=== PATIENT | female | born 1995 | race Caucasian/White ===

== ENCOUNTER 2020-04-14 11:14 | Outpatient (CLI) | payer OTHER, MEDICAID, SELFPAY ==
[2020-04-14 13:20] LABS: Glucose 1 Hour PP 50gm Dose 136 mg/dL
== END 2020-04-14 11:15 | disposition home or self-care (01) ==
LOC: ANHLAB 11:16
PROVIDERS: Visit Provider Obstetrics & Gynecology
DX: O09.892 Supervision of other high risk pregnancies, second trimester (principal)
CPT/HCPCS: 36415; 82947

== ENCOUNTER 2020-04-28 12:06 | Outpatient (RCR) | payer OTHER, MEDICAID, SELFPAY ==
[2020-04-28 12:47] VITALS: BP 120/64; PULSE 80
== END 2020-07-07 08:05 | disposition home or self-care (01) ==
LOC: ANHOBOP 12:06
PROVIDERS: Visit Provider Obstetrics & Gynecology
DX: O36.8130 Decreased fetal movements, third trimester, not applicable or unspecified (principal); Z3A.29 29 weeks gestation of pregnancy
CPT/HCPCS: 59025

== ENCOUNTER 2020-05-20 07:44 | Outpatient (CLI) | payer OTHER, MEDICAID, SELFPAY ==
[2020-05-20 08:06] LABS: Basophils Percent Auto 0.3 % (0.2-1.2); Eosinophils Absolute Auto 0.1 K/mm3 (0-0.3); Hematocrit 37.3 % (37.0-47.0); Hemoglobin 12.3 g/dL (12.0-15.0); Immature Granulocyte Absolute 0.04 K/mm3 (0.00-0.031); Immature Granulocyte Percent A 0.3 % (0-0.5); Lymphocytes Absolute Auto 2.32 K/mm3 (0.9-3.2); Lymphocytes Percent Auto 19.8 % (18.3-44.2); Mean Corpuscular Hemoglobin 27.8 pg (26-34); Mean Corpuscular Volume 84.4 fl (80-100); Mean Platelet Volume 10.5 fl (7.4-10.4); Monocytes Absolute Auto 0.9 K/mm3 (0.1-0.6); Monocytes Percent Auto 7.4 % (2.6-8.5); Neutrophils Absolute Auto 8.3 K/mm3 (1.3-6.7); Neutrophils Percent Auto 71.2 % (45.5-73.1); Platelet Count Result 238 k/mm3 (150-375); Red Blood Count 4.42 M/mm3 (4.2-5.4); Red Cell Distribution Width 14.6 % (11.5-14.5); White Blood Count 11.7 K/mm3 (4.5-10.0)
[2020-05-20 08:43] LABS: Glucose Fasting Gestational 103 mg/dL (>/=95)
[2020-05-20 10:40] LABS: Glucose 1 Hour Gest 207 mg/dL (>/=180)
[2020-05-20 11:20] LABS: Glucose 2 Hour Gest 145 mg/dL (>/= 155)
[2020-05-20 12:20] LABS: Glucose 3 Hour Gest 45 mg/dL (>/=140)
[2020-05-21 12:45] LABS: Rapid Plasma Reagin Non-Reactive (NonReactive)
== END 2020-05-20 07:45 | disposition home or self-care (01) ==
PROVIDERS: Visit Provider Obstetrics & Gynecology
DX: O09.892 Supervision of other high risk pregnancies, second trimester (principal)
CPT/HCPCS: 36415; 82951; 82952; 85025; 86592

== ENCOUNTER 2020-06-01 08:08 | Outpatient (CLI) | payer OTHER, MEDICAID, SELFPAY ==
[2020-06-01] MEDS: TETANUS,DIPHTHERIA,AC PERTUSSIS ADULT (0.5 ML) BOOSTRIX IM (08:51)
== END 2020-06-01 08:09 | disposition home or self-care (01) ==
LOC: ANHOBOP 08:22
PROVIDERS: Visit Provider Obstetrics & Gynecology
DX: Z34.90 Encounter for supervision of normal pregnancy, unspecified, unspecified trimester (principal); Z3A.00 Weeks of gestation of pregnancy not specified
CPT/HCPCS: 59025; 76816; 76819; 90715; 96372

== ENCOUNTER 2020-07-02 16:35 | Outpatient (NON) | payer OTHER, MEDICAID, SELFPAY ==
[2020-07-02 19:19] VITALS: BMI 53.7
[2020-07-02 19:50] LABS: Collection Time Urine 24 HOURS
[2020-07-02 19:57] LABS: Patient Weight 293 Lbs; Total Volume 24 Hour Urine 1400 ml
[2020-07-02 19:58] LABS: Creatinine Clearance Urine 140.5 ml/min (75-125); Creatinine Urine 112.3 mg/dL; Total Protein Urine 24 Hr 126 MG/DAY (28-141); Total Protein Urine Random 9 mg/dL
== END 2020-07-02 16:36 ==
PROVIDERS: Visit Provider Obstetrics & Gynecology
DX: O13.9 Gestational [pregnancy-induced] hypertension without significant proteinuria, unspecified trimester (principal); Z3A.00 Weeks of gestation of pregnancy not specified
CPT/HCPCS: 81050; 82575; 84156

== ENCOUNTER 2020-07-03 08:40 | Outpatient (RCR) | payer OTHER, MEDICAID, SELFPAY ==
[2020-06-01 09:30] VITALS: BP 110/79; PULSE 90
[2020-06-08 10:25] VITALS: BP 117/74; PULSE 98
[2020-06-15 09:30] VITALS: BP 124/82; PULSE 84
[2020-06-18 10:59] VITALS: BP 129/74; PULSE 105
[2020-06-18 19:51] VITALS: BP 133/83; PULSE 105
[2020-06-22 13:17] VITALS: BP 113/79; PULSE 114
[2020-06-25 09:25] VITALS: BP 117/71; PULSE 121
[2020-06-29 09:08] VITALS: BP 121/79; PULSE 113
[2020-07-01 11:35] LABS: Hematocrit 40.7 % (37.0-47.0); Hemoglobin 13.4 g/dL (12.0-15.0); Mean Corpuscular HGB Conc 32.9 g/dl (32-36); Mean Corpuscular Hemoglobin 27.6 pg (26-34); Mean Corpuscular Volume 83.9 fl (80-100); Mean Platelet Volume 11.5 fl (7.4-10.4); Platelet Count Result 217 k/mm3 (150-375); Red Blood Count 4.85 M/mm3 (4.2-5.4); Red Cell Distribution Width 14.9 % (11.5-14.5); White Blood Count 11.7 K/mm3 (4.5-10.0)
[2020-07-01 11:48] LABS: Alanine Aminotransferase 32 U/L (4-35); Albumin Level 3.5 g/dL (3.5-5.1); Alkaline Phosphatase 204 U/L (38-126); Anion Gap 6 mmol/L (8-16); Aspartate Amino Transferase 23 U/L (14-36); Bilirubin,Total 0.3 mg/dL (0.2-1.3); Blood Urea Nitrogen 9 mg/dL (7-17); Carbon Dioxide 20 mmol/L (22-30); Chloride 107 mmol/L (98-107); Estimated Glomerular Filt Rate > 60; Glucose 96 mg/dL (65-105); Potassium 4.2 mmol/L (3.4-5.0); Sodium 133 mmol/L (137-145); Uric Acid 5.6 mg/dL (2.5-7.5)
[2020-07-01 12:18] VITALS: BP 126/81; PULSE 92
--- NOTE | ~2020-07-03 | US_ITS ---
EXAMINATION: US OB limited w BPP DATE: 06/08/2020 09:44 INDICATION: Gestational diabetes, third trimester TECHNIQUE: Real-time pelvic ultrasound was performed. The interpreting radiologist was not present fo r the study. COMPARISON: None. FINDINGS: There is a single living fetus in vertex presentation. The placenta is anterior. heart rate is 152 beats per minute (bpm). Biophysical profile performed by the technologist: breathing (30 sec sustained breathing in 30 minutes): 2 out of 2 movement (3 gross body movements in 30 minutes): 2 out of 2 tone (one episode of kjypver-oitcjagnp-cqangkq limb movement): 2 out of 2 Amniotic fluid pocket (2 cm): 2 out of 2 Total score: 8 out of 8 IMPRESSION: 1. Single living fetus in vertex presentation. 2. Biophysical profile 8 out of 8. Reviewed, dictated and finalized at location A.
--- NOTE | ~2020-07-03 | US_ITS ---
EXAMINATION: US umbilical doppler, US OB BPP wo non-stress DATE: 07/01/2020 12:40 INDICATION: Hypertension during third trimester of TECHNIQUE: Real-time pelvic ultrasound was performed. The interpreting radiologist was not present fo r the study. COMPARISON: None. FINDINGS: There is a single living fetus in vertex presentation. The placenta is anterior. heart rate is 139 beats per minute (bpm). Biophysical profile performed by the technologist: breathing (30 sec sustained breathing in 30 minutes): 2 out of 2 movement (3 gross body movements in 30 minutes): 2 out of 2 tone (one episode of dhrqxwi-gqmrqdpil-pgkrgem limb movement): 2 out of 2 Amniotic fluid pocket (2 cm): 2 out of 2 Total score: 8 out of 8 The umbilical artery demonstrates a peak systolic and diastolic velocity ratio of 2.3-2.7 at the fetu s, 2.0-2.2 in the mid cord and 1.8 near the placenta (5th%-95%: 1.90-3.08 at 38 weeks). IMPRESSION: 1. Single living fetus in vertex presentation with heart rate of 139 bpm. 2. Biophysical profile 8 out of 8. 3. Normal umbilical arterial systolic to diastolic ratios. Reviewed, dictated and finalized at location A. IMPRESSION: 1. Single living fetus in vertex presentation with heart rate of 139 bpm. 2. Biophysical profile 8 out of 8. 3. Normal umbilical arterial systolic to diastolic ratios.
--- NOTE | ~2020-07-03 | US_ITS ---
EXAMINATION: US OB BPP wo non-stress DATE: 06/22/2020 10:18 INDICATION: Gestational diabetes, third trimester TECHNIQUE: Real-time pelvic ultrasound was performed. The interpreting radiologist was not present fo r the study. COMPARISON: 06/12/2020 FINDINGS: There is a single living fetus in vertex presentation. The placenta is anterior. heart rate is 129 beats per minute (bpm). Biophysical profile performed by the technologist: breathing (30 sec sustained breathing in 30 minutes): 2 out of 2 movement (3 gross body movements in 30 minutes): 2 out of 2 tone (one episode of iqjtzwd-ocxqubtwf-orhoxiv limb movement): 2 out of 2 Amniotic fluid pocket (2 cm): 2 out of 2 Total score: 8 out of 8 IMPRESSION: 1. Single living fetus in vertex presentation. 2. Biophysical profile 8 out of 8. Reviewed, dictated and finalized at location A.
--- NOTE | ~2020-07-03 | US_ITS ---
US OB limited w BPP DATE: 06/15/2020 09:35 INDICATION: Gestational diabetes mellitus TECHNIQUE: Real-time imaging and Doppler analysis COMPARISON: 06/08/2020 obstetrical ultrasound Limited examination with biophysical profile FINDINGS: Live single intrauterine gestation, fetus in vertex presentation. heart rate of 131 b pm. Anterior placenta. Subjectively normal amount of amniotic fluid. Amniotic fluid index measures 18.3 cm. This is within n ormal range between 5th percentile 7.7 cm and 95th percentile of 24.9 cm. BIOPHYSICAL PROFILE reported by surgical instrument technician: breathin out of 2 movement: 2 out of 2 tone: 2 out of 2 Amniotic fluid pocket: 2 out of 2 Total score: 8 out of 8 IMPRESSION: Normal biophysical profile score of 8 out of 8 Reviewed, dictated and finalized at Location A. Reviewed, dictated and finalized at location A.
--- NOTE | ~2020-07-03 | US_ITS ---
EXAMINATION: US OB limited EXAM DATE: 07/03/2020 09:46 INDICATION: Gestational diabetes. Check NILE. 3rd trimester. TECHNIQUE: Pelvic obstetrical transabdominal sonogram was performed by a technologist. There are mu ltiple grayscale and Doppler images available for interpretation. Comparison is made to prior examina tion from 06/11/2020. FINDINGS: There is a single fetus identified in vertex presentation with a heart rate of 143 beats pe r minute. The placenta is located in the anterior position. There is no sonographic evidence of retr oplacental hemorrhage identified. The amniotic fluid index is 10.5 centimeters, which is normal. IMPRESSION: 1. Single fetus in vertex presentation with heart rate 143 beats per minute. 2. Normal NILE 10.5 cm. Reviewed, dictated and finalized at location A.
--- NOTE | ~2020-07-03 | US_ITS ---
EXAMINATION: US OB follow up w BPP EXAM DATE: 06/01/2020 09:28 INDICATION: Gestational diabetes. 3rd trimester. TECHNIQUE: Pelvic obstetrical transabdominal sonogram was performed by a technologist. There are mu ltiple grayscale and Doppler images available for interpretation. There are no earlier studies of th is gestation for comparison. FINDINGS: There is a single fetus identified in vertex presentation with a heart rate of 144 beats pe r minute. The placenta is located in the anterior position. There is no sonographic evidence of retr oplacental hemorrhage identified. The amniotic fluid index is 13.0 centimeters, which is normal. BIOPHYSICAL PROFILE (performed by the technologist) breathing (30 sec sustained breathing in 30 minutes): 2 out of 2 movement (3 gross body movements in 30 minutes): 2 out of 2 tone (one episode of xnwskjs-bwedmmrjv-ijijvlt limb movement): 2 out of 2 Amniotic fluid pocket (2 cm): 2 out of 2 Total score: 8 out of 8 IMPRESSION: 1. Single fetus with heart rate of 144 bpm. 2. Normal biophysical profile score of 8 out of 8. 3. Normal NILE 13 cm. Reviewed, dictated and finalized at location A.
--- NOTE | 2020-07-03 10:30 | PC.NURSE ---
BRg955/85, 136/79, 140/67.
[2020-07-03 10:45] VITALS: BP 135/89; PULSE 108
== END 2020-07-07 08:04 | disposition home or self-care (01) ==
LOC: ANHOBOP 08:40
PROVIDERS: Visit Provider Obstetrics & Gynecology
DX: O24.419 Gestational diabetes mellitus in pregnancy, unspecified control (principal); Z3A.34 34 weeks gestation of pregnancy; Z3A.35 35 weeks gestation of pregnancy; Z3A.36 36 weeks gestation of pregnancy; Z3A.37 37 weeks gestation of pregnancy; O26.893 Other specified pregnancy related conditions, third trimester; R03.0 Elevated blood-pressure reading, without diagnosis of hypertension; Z3A.38 38 weeks gestation of pregnancy
CPT/HCPCS: 36415; 59025; 76815; 76816; 76819; 76820; 80053; 84550; 85027

== ENCOUNTER 2020-07-04 05:44 | Outpatient (CLI) | payer OTHER, MEDICAID, SELFPAY ==
[2020-07-04 07:02] VITALS: BP 126/83; PULSE 92
== END 2020-07-04 07:15 | disposition home or self-care (01) ==
PROVIDERS: Visit Provider Obstetrics & Gynecology
DX: O13.9 Gestational [pregnancy-induced] hypertension without significant proteinuria, unspecified trimester (principal)
CPT/HCPCS: 59025

== ENCOUNTER 2020-07-06 07:10 | Inpatient (IN) | payer OTHER, MEDICAID, SELFPAY ==
[2020-07-06] VITALS (143 sets, daily range): BP systolic 76–163; BP diastolic 38–131; PULSE 50–212; TEMP 36.1–36.6; O2SAT 81–100; BMI 53.6
--- NOTE | 2020-07-06 07:33 | WPDANESEPP ---
Anes - Eval Pre Procedure Procedure: labor epidural Date/Time: 07/06/20 07:33 Preop Diagnosis: labor pain Pre Op Diagnosis: Induction of Labor Patient Data Age: 24 Gender: F Height: Weight: Allergies Allergy/AdvReac Type Severity Reaction Status Date / Time No Known Allergies Allergy Mild Verified 07/01/20 10:15 Home Medications Medication Instructions Recorded Confirmed Type blood sugar diagnostic #100 each 05/29/20 05/29/20 Rx blood-glucose meter #1 each 05/29/20 05/29/20 Rx lancets #100 each 05/29/20 05/29/20 Rx PNV no.[id number] 2 tablet PO DAILY 06/18/20 06/18/20 History [ Gummies] Vitamin D3 2 tablet PO DAILY 06/18/20 06/18/20 History calcium carbonate [Tums] 600 mg PO ONCE 06/18/20 06/18/20 History Patient hx anesthesia problems: none Family hx anesthesia problems: none PMFSH Social History Social History Gender identity (if verbalized by the patient): Female Spiritual care concerns: No Exam Day of Procedure 07/06/20 07:33
[2020-07-06 08:17] LABS: Basophils Percent Auto 0.4 % (0.2-1.2); Eosinophils Absolute Auto 0.1 K/mm3 (0-0.3); Eosinophils Percent Auto 1.1 % (0-4.4); Hematocrit 36.4 % (37.0-47.0); Hemoglobin 12.2 g/dL (12.0-15.0); Immature Granulocyte Absolute 0.05 K/mm3 (0.00-0.031); Immature Granulocyte Percent A 0.5 % (0-0.5); Lymphocytes Absolute Auto 2.06 K/mm3 (0.9-3.2); Lymphocytes Percent Auto 19.6 % (18.3-44.2); Mean Corpuscular HGB Conc 33.5 g/dl (32-36); Mean Corpuscular Volume 83.5 fl (80-100); Mean Platelet Volume 11.5 fl (7.4-10.4); Monocytes Absolute Auto 0.7 K/mm3 (0.1-0.6); Monocytes Percent Auto 6.3 % (2.6-8.5); Neutrophils Absolute Auto 7.6 K/mm3 (1.3-6.7); Neutrophils Percent Auto 72.1 % (45.5-73.1); Platelet Count Result 234 k/mm3 (150-375); Red Blood Count 4.36 M/mm3 (4.2-5.4); Red Cell Distribution Width 14.7 % (11.5-14.5); White Blood Count 10.5 K/mm3 (4.5-10.0)
[2020-07-06 08:19] LABS: Glucose Point of Care 146 (65-105)
[2020-07-06] MEDS: SODIUM CHLORIDE 0.9% IV 1,000 ML 125 ML IV CONT (08:38)
[2020-07-06] MEDS: OXYTOCIN 30 UNITS/NS 500 ML 30 UNITS/500 ML BAG 6 UNITS IV CONT (08:40)
[2020-07-06] MEDS: AMPICILLIN 2 GM/NS 100 ML 2 GM/100 ML BAG IVPB (08:40)
--- NOTE | 2020-07-06 08:43 | LDADM ---
This patient, Sonja Wyman, was admitted to Labor/Delivery/Recovery 103 on 07/06/20 at 07:10. Plans for labor, pain management and were discussed with patient. Patient/family oriented to hospital policies and general routines including ID bracelet, bed and alarms, visiting hours, pain management, procedures, bathroom and other care routines, personal items, smoking policy, room service/diet and guest tray routines, security routines, and visiting hours. Patient/Family are encouraged to report perceived risks to care and to ask questions if they do not understand what they are told or what they should do. See OBIX for further documentation.
[2020-07-06 09:09] LABS: HIV 1/2 Ab P24 Ag Result Negative (Negative)
[2020-07-06 09:21] LABS: Glucose Point of Care 92 (65-105)
[2020-07-06 11:53] LABS: Glucose Point of Care 89 (65-105)
[2020-07-06] MEDS: AMPICILLIN 1 GM/NS 50 ML 1 GM/50 ML BAG IVPB ×3 (12:35→20:28)
[2020-07-06 14:55] LABS: Glucose Point of Care 79 (65-105)
[2020-07-06 17:16] LABS: Glucose Point of Care 103 (65-105)
--- NOTE | 2020-07-06 17:18 | PM.IMHP ---
H&P: HPI History of Present Illness Date/Time: 07/06/20 17:18 Chief complaint: Induction of Labor Narrative: Sonja Wyman is a 24 year old female G1 at 39 2/7 weeks with an EDC of Jul 11. course significant for gestational diabetes diet controlled. Recently diagnosed with gestational hypertension on Monday. She denies any headache scotomata or right upper quadrant pain. course also significant for history of marijuana use which she states she used for anxiety. She declines recent use. She has a history of generalized anxiety. She sees a counselor. She was offered Buspar but declined. Also history significant for obesity. She has had normal surveillance testing. Her last ultrasound had EFW 11% which prior ultrasound was 23%. Her doppler studies have been normal. She also had ASCUS +HR hpv pap- bx CIN1. labs reviewed. Review of Systems Review of Systems: All systems reviewed & are unremarkable except as noted in HPI and below Constitutional: Constitutional: Reports no additional constitutional complaints and Denies headache(s) Eyes: Eyes: Denies spots in vision ENT: Reports system reviewed and no additional complaints, except as documented and Denies headache(s) Cardiovascular: Cardiovascular: Denies chest pain and Denies dyspnea Respiratory: Respiratory: Denies dyspnea Gastrointestinal: Gastrointestinal: Reports no additional gastrointestinal complaints Genitourinary: Genitourinary: Reports amenorrhea Musculoskeletal: Musculoskeletal: Reports no additional musculoskeletal complaints Integumentary/Breasts: Skin/Breast: Denies breast mass and Denies rash Neurologic: Denies headache(s) Psychiatric: Psychiatric: Reports no additional psychiatric complaints PMFSH Past Medical History Medical History Chlamydia Depression Encounter for childcare instruction Supervision of other high risk pregnancies, second trimester Surgical History Surgical History [place] teeth removed Family History Family History Father Diabetes mellitus Social History Social History Smoking status: Never smoker Gender identity (if verbalized by the patient): Female Spiritual care concerns: No Meds Home Medications and Allergies Home Medications Medication Instructions Recorded Confirmed Type blood sugar diagnostic #100 each 05/29/20 05/29/20 Rx blood-glucose meter #1 each 05/29/20 05/29/20 Rx lancets #100 each 05/29/20 05/29/20 Rx PNV no.[id number] 2 tablet PO DAILY 06/18/20 07/06/20 History [ Gummies] Vitamin D3 2 tablet PO DAILY 06/18/20 07/06/20 History calcium carbonate [Tums] 600 mg PO ONCE 06/18/20 07/06/20 History Allergies Allergy/AdvReac Type Severity Reaction Status Date / Time No Known Allergies Allergy Mild Verified 07/01/20 10:15 Vital Signs Vital Signs - 24 hr 07/06/20 08:12 07/06/20 08:46 07/06/20 09:01 Temperature Pulse Rate 107 H 97 98 Blood Pressure 121/82 133/91 H 128/76 07/06/20 09:16 07/06/20 09:31 07/06/20 09:47 Temperature Pulse Rate 91 89 82 Blood Pressure 123/94 H 119/78 126/75 07/06/20 10:01 07/06/20 10:16 07/06/20 10:31 Temperature Pulse Rate 77 69 71 Blood Pressure 123/63 116/66 118/65 07/06/20 10:46 07/06/20 11:02 07/06/20 11:16 Temperature Pulse Rate 70 74 81 Blood Pressure 118/72 99/66 L 119/74 07/06/20 11:47 07/06/20 12:01 07/06/20 12:16 Temperature Pulse Rate 70 66 72 Blood Pressure 130/64 126/85 118/83 07/06/20 12:31 07/06/20 12:46 07/06/20 13:01 Temperature Pulse Rate 84 74 77 Blood Pressure 123/73 119/76 115/69 07/06/20 13:16 07/06/20 13:31 07/06/20 13:46 Temperature Pulse Rate 69 71 72 Blood Pressure 119/88 118/73 105/73
--- NOTE | 2020-07-06 17:36 | PM.OBPNVD ---
OB - PN: Subj Subjective Date/time seen: 07/06/20 1430 Cat 1 tracing, fht 130, irreg ctx, 3.5/50/-2, attempted AROM, patient did not tolerate exam. Continue Pitocin. OB - PN: Obj Data Labs CBC & Chem 7: 07/06/20 08:09 Labs: Laboratory Results - last 24 hr 07/06/20 07/06/20 07/06/20 08:09 08:09 08:09 WBC 10.5 H RBC 4.36 Hgb 12.2 Hct 36.4 L MCV 83.5 MCH 28.0 MCHC 33.5 RDW 14.7 H Plt Count 234 MPV 11.5 H Immature Gran % (Auto) 0.5 Neut % (Auto) 72.1 Lymph % (Auto) 19.6 [place] % (Auto) 6.3 Eos % (Auto) 1.1 Baso % (Auto) 0.4 Lymph # (Auto) 2.06 [place] # (Auto) 0.7 H Eos # (Auto) 0.1 Baso # (Auto) 0.0 Abs Immat Gran (auto) 0.05 H Absolute Neuts (auto) 7.6 H Absolute Nucleated RBC 0.0 Nucleated RBC % 0.0 POC Capillary Glucose HIV 1&2 Ab/P24 Ag 4thGn Negative Blood Type O Positive Antibody Screen Negative 07/06/20 07/06/20 07/06/20 08:17 09:18 11:40 WBC RBC Hgb Hct MCV MCH MCHC RDW Plt Count MPV Immature Gran % (Auto) Neut % (Auto) Lymph % (Auto) [place] % (Auto) Eos % (Auto) Baso % (Auto) Lymph # (Auto) [place] # (Auto) Eos # (Auto) Baso # (Auto) Abs Immat Gran (auto) Absolute Neuts (auto) Absolute Nucleated RBC Nucleated RBC % POC Capillary Glucose 146 H 92 89 HIV 1&2 Ab/P24 Ag 4thGn Blood Type Antibody Screen 07/06/20 07/06/20 14:51 16:35 WBC RBC Hgb Hct MCV MCH MCHC RDW Plt Count MPV Immature Gran % (Auto) Neut % (Auto) Lymph % (Auto) [place] % (Auto) Eos % (Auto) Baso % (Auto) Lymph # (Auto) [place] # (Auto) Eos # (Auto) Baso # (Auto) Abs Immat Gran (auto) Absolute Neuts (auto) Absolute Nucleated RBC Nucleated RBC % POC Capillary Glucose 79 103 HIV 1&2 Ab/P24 Ag 4thGn Blood Type Antibody Screen OB - PN A/P Time Spent With Patient Time: Total time spent is greater than 50% in coordination of care (as documented) at patient's floor/unit and/or counseling patient:
[2020-07-06] MEDS: LACTATED RINGERS 1,000 ML 125 ML IV CONT ×2 (19:06→22:17)
[2020-07-06] MEDS: ONDANSETRON INJ 4 MG/2 ML VIAL IV PUSH (19:22)
[2020-07-06] MEDS: PHENYLEPHRINE 1,000 MCG/10 ML SYRINGE 100 MCG IV PUSH (20:35)
[2020-07-06 21:24] LABS: Glucose Point of Care 84 (65-105)
[2020-07-06 22:02] LABS: Glucose Point of Care 88 (65-105)
[2020-07-07] VITALS (23 sets, daily range): BP systolic 105–146; BP diastolic 54–124; PULSE 61–118; RESP 12–18; TEMP 36.4–36.8; O2SAT 85–100
[2020-07-07] MEDS: OXYTOCIN 30 UNITS/NS 500 ML 30 UNITS/500 ML BAG 125 UNITS IV CONT (01:51)
--- NOTE | 2020-07-07 02:05 | PM.OBPRVD ---
OB - Delivery Note Procedure Delivery date: 07/07/20 Procedure: Spontaneous vaginal delivery events: Gestational Diabetes and Induced HTN Induction method: per pitocin protocol Delivery monitor: external FHT, external uterine, internal FHT and internal uterine Route of delivery: Laceration description: Vaginal - 1st Degree (introitus) Delivery repair: vicryl (3.0) Specimen: Yes Estimated blood loss (mL): 150 Anesthesia type: Epidural Disposition: floor Complications: Shoulder dystocia lasting 1:55 sec relieved with delivery of posterior shoulder while modified huy and suprapubic pressure Tight nuchal cord surgically reduced. [place] Baby Date of : 07/07/20 Time of : 01:14 Weeks of gestation at delivery: 39 gender: Male Weight (pounds): 7 Weight (ounces): 5 presentation: vertex position: Left Occiput Anterior Placenta delivery description: Spontaneous cord vessel description: Nuchal Cord and Tight score one minute: 5 score five minutes: 9 Narrative: Patient was admitted on 07/06 for [facility] for gestational diabetes and gestational hypertension. She was started on Ampicillin on admission for GBS carrier status. Her cervix was 3 cm and she was started on Pitocin. Attempted AROM at 230 and patient did not tolerate exam. She had SROM clear at approximately 1600. She progressed to 8.5 cm. She did have episode of bradycardia with hypotension and had uterine hypertonus. Pitocin stopped. Blood pressures improved. She then restarted at 2137. She was called complete and pushed a few times but then cervix was rechecked and felt to be 9. She then started having nonrepetitive mild late decels and at that time I came in to discuss cesearean section for intolerance. The tracing had improved. Cat 1. Cervix had small rim. She pushed and was complete +1. position palpated at direct OA. She pushed well. She then pushed on all 4 for approximately 20min and then on the side. The station at that time was getting to +2. She continued to push well. She delivered a male infant. The head rotated to ANAND with last push and presentation of head. Tight nuchal cord surgically reduced. She then pushed and there was no descent. She was put in modified Huy and then suprapubic. The shoulder remain stuck. Then the right posterior shoulder was palpated with vaginal exam and swept midline and delivered to introitus and then the anterior shoulder delivered. Infant was handed to nursery staff in attendance. The cord blood and cord gases obtained. Placenta delivered spontaneous and intact. She sustained a first degree vaginal laceration repaired with 2 figure of eight 3.0 vicryl sutures. Hemostasis noted. EBL 150cc. Patient tolerated procedure well.
[2020-07-07] MEDS: IBUPROFEN 600 MG TABLET PO ×3 (03:19→19:56)
[2020-07-07 03:51] LABS: Amphetamine Screen Urine Negative (Negative); Barbiturate Screen Urine Negative (Negative); Benzodiazepines Screen Urine Negative (Negative); Cannabinoid Screen Urine Negative (Negative); Cocaine Screen Urine Negative (Negative); Methadone Screen Urine Negative (Negative); Opiate Screen Urine Negative (Negative); Phencyclidine Screen Urine Negative (Negative)
[2020-07-07] MEDS: BENZOCAINE 20% AER SPR (*SP) 56 GM CAN 1 SPRAY TOPICAL (04:19)
[2020-07-07] MEDS: WITCH HAZEL 40 PADS 1 PAD TOPICAL (04:19)
--- NOTE | 2020-07-07 04:37 | OBPPTRN ---
Patient transferred to post room #279 via wheelchair. Support person present. Oriented to unit, room, information board, rooming in, admission packet and security measures. Patient verbalizes understanding.
[2020-07-07] MEDS: ACETAMINOPHEN 325 MG TABLET 650 MG PO ×3 (04:56→23:51)
[2020-07-07 09:05] LABS: Rapid Plasma Reagin Non-Reactive (NonReactive)
[2020-07-07] MEDS: MULTIVIT/MIN/PREN/FOL AC/IRON TABLET 1 TAB PO (11:21)
--- NOTE | 2020-07-07 14:50 | PC.NURSE ---
Mother called out for assist. Mother reports infant is eagerly latching without discomfort, mother wishes observation and advise. Reviewed infant feeding cues, frequencies, duration of feedings, feeding elimination flow sheet, and signs of adequate intake. Demonstrated stimulation techniques to wake for feeding. Assisted with infant to breast. Reviewed positioning/alignment in cross cradle, holding breast in U hold and guided asymmetrical latch on. Discussed rational for each. Infant was able to latch correctly within a few attempts. nursed eagerly, with steady draws and frequent swallowing noted. Reviewed signs of a correct latch, effective nursing and suck swallow ratio. was able to maintain latch without discomfort to mother. Nipple care reviewed. Suggested mother stimulate while feeding to keep infant awake and nursing effectively for increased intake and to assist with maintaining deep latch. Demonstrated how to adjust latch more deeply while feeding. Instructed mother to call out for RN assistance if she is unable to latch for feeding or she has discomfort with nursing. Instructed feeding should be initiated three hours from start of last feeding or if feeding cues are noted before. Mother voiced understanding of information shared.
[2020-07-08] MEDS: IBUPROFEN 600 MG TABLET PO ×2 (04:55→16:34)
[2020-07-08 05:18] LABS: Hemoglobin 11.1 g/dL (12.0-15.0)
--- NOTE | 2020-07-08 07:19 | WPDANLDPN2 ---
Anes-Prog Note L&D Date/Time: 07/08/20 07:19 Comfortable throughout: labor and delivery Neuraxial method: epidural Epidural/Spinal procedure site: clean & non-tender Neuro status: Neuro function grossly intact. Cardiovascular status: normal Respiratory status: normal Airway patency: baseline Mental status: baseline Post-Op hydration status: normal Vital Signs: Last Vital Signs Temp 36.8 C 07/07/20 19:45 Pulse 72 07/07/20 19:45 Resp 12 07/07/20 19:45 BP 120/85 07/07/20 19:45 Pulse Ox 100 07/07/20 08:35 Post-procedural complaints: none Patient feedback: Patient satisfied with anesthetic care.
[2020-07-08 07:50] VITALS: BP 132/83; PULSE 67; RESP 18; TEMP 36.4; O2SAT 99
--- NOTE | 2020-07-08 08:12 | P.PNOB_ITS ---
OB - PN: Subj Subjective Date/time seen: 07/08/20 08:12 No headache scotomata or RUQ pain. Patient comments: pain well controlled, tolerating diet and other (Decreasing lochia.) [place] baby status: doing well and nursing well [place] feeding status: exclusively breast feeding OB - PN: Obj Data Labs CBC & Chem 7: 07/08/20 04:46 Labs: Laboratory Results - last 24 hr 07/06/20 07/08/20 08:09 04:46 Hgb 11.1 L Hct 34.0 L RPR Non-reactive OB - PN A/P Plan day: 1 Plan: routine care Comments: Patient doing well. Blood pressures stable. Continue routine care. Time Spent With Patient Time: Total time spent is greater than 50% in coordination of care (as documented) at patient's floor/unit and/or counseling patient: Exam Psych: Affect: normal affect Other: Abd: fundus firm below umbilicus, nontender Ext: nontender
[2020-07-08] MEDS: ACETAMINOPHEN 325 MG TABLET 650 MG PO ×2 (09:51→20:50)
[2020-07-08] MEDS: DOCUSATE SODIUM 100 MG CAPSULE PO ×2 (09:51→16:34)
[2020-07-08] MEDS: MULTIVIT/MIN/PREN/FOL AC/IRON TABLET 1 TAB PO (09:51)
--- NOTE | 2020-07-08 17:20 | PC.NURSE ---
Mother called out for assist with latch due to tenderness. Reviewed feeding cues, frequencies, duration of feedings, feeding elimination flow sheet, and signs of adequate intake. Demonstrated stimulation techniques to wake infant for feeding. Mother is attempting latch with cradle, allowing infant to self latch. Assisted with infant to breast. Reviewed positioning/alignment in cross cradle, holding breast in U hold and guided asymmetrical latch on. Discussed rational for each. Within a few attempts was able to latch correctly. nursed eagerly, with steady draws and frequent swallowing noted. Mother quickly reports she can feel infant is latched differently and has no discomfort. Reviewed signs of a correct latch, effective nursing and suck swallow ratio. Infant was[able/unable] to maintain latch without discomfort to mother. Nipple care reviewed. Suggested mother stimulate while feeding to keep infant awake and nursing effectively and to assist with maintaining deep latch. Instructed mother to call out for RN assistance if she is unable to latch for feeding or she has discomfort with nursing. Parents are concerned infant is not getting enough with . Reviewed signs of adequate intake. Discussed infant output and weight status, advised to keep close observation for output last output 0430, weight is at 9%. Advised to wake every three hours to feed and keep awake and nursing effectively. Reviewed PCOS and how this may impact milk supply, advising at this time no supplementing is required. Parents may supplement as they choose. Instructed feeding should be initiated three hours from start of last feeding or if feeding cues are noted before. Mother voiced understanding of information shared.
--- NOTE | 2020-07-08 18:40 | PC.NURSE ---
Patient viewed the discharge video Mother & Baby Care, The First Two Weeks . Patient was given the opportunity and encouraged to ask questions. Patient verbalized understanding of information shared and has been given the mother/baby guide for home reference.
[2020-07-08 20:54] VITALS: BP 140/82; PULSE 77; RESP 12; TEMP 36.8
[2020-07-09] MEDS: IBUPROFEN 600 MG TABLET PO ×2 (00:43→09:46)
[2020-07-09 08:00] VITALS: BP 135/80; PULSE 72; RESP 16; TEMP 36.4; O2SAT 100
--- NOTE | 2020-07-09 08:35 | P.PNOB_ITS ---
OB - PN: Subj Subjective Date/time seen: 07/09/20 08:35 Patient comments: pain well controlled, tolerating diet and other (Decreasing lochia.) baby status: doing well and nursing well [place] feeding status: exclusively breast feeding OB - PN: Obj Data Labs CBC & Chem 7: 07/08/20 04:46 OB - PN A/P Plan day: 2 Plan: discharge home and other Comments: Patient doing well. Follow up 4-6 weeks. Discharge instructions provided. Time Spent With Patient Time: Total time spent is greater than 50% in coordination of care (as documented) at patient's floor/unit and/or counseling patient: Time with patient: less than 15 minutes Exam Psych: Affect: normal affect Other: Abd: fundus firm below umbilicus, nontender Perineum: healing Ext: nontender
--- NOTE | 2020-07-09 09:30 | PC.NURSE ---
Mother is able to independently latch with appropriate positioning/alignment. She denies any nipple discomfort, is feeding as required and waking infant to feed if needed. Infant has had at least 8 effective feedings in the past 24 hours, and is currently meeting outcomes output, jaundice and feeding frequencies. Weight is at 10%. Mother is concerned with her milk supply, reviewed it is only day 2 and milk should transition in by day 3-5 after delivery. To continue to follow putting to breast each feeding and pumping every other. Parents are concerned infant will breastfeed both breasts for 20 each and continue to be fussy and have feeding cues. FP is initiated of 20 mls after each feeding. Mother will pump 10 minutes after every other feeding to assist with stimulation of milk supply. Discussed when to increase supplementation and signs of when infant may be ready to decrease supplementation. Mother states she feels confident to continue current feeding plan at home. Reviewed transition to breast milk, signs of adequate intake, and engorgement/relief. Instructed to call ICP if intake/output less than required. Reviewed regular medications mother is taking. Information provided per Jackie. Reviewed community resources on the [facility] website and in the Mom/Baby guide. Information on outpatient services provided. Mother has no further questions at this time.
[2020-07-09] MEDS: DOCUSATE SODIUM 100 MG CAPSULE PO (09:46)
[2020-07-09] MEDS: MULTIVIT/MIN/PREN/FOL AC/IRON TABLET 1 TAB PO (09:46)
[2020-07-10 10:23] VITALS: BP 139/75; PULSE 77; RESP 20; O2SAT 99
--- NOTE | 2020-08-06 06:27 | PM.OBDSVD ---
DS: Admitting Diagnosis Admitting Diagnosis Admitting Diagnosis: 1.Gestational hypertension 2.Gestational diabetes. 3.Induction of labor. DS: Discharge Diagnosis Discharge Diagnosis (1) Gestational hypertension: Code(s): O13.9 - Gestational [-induced] hypertension without significant proteinuria, unspecified trimester Status: Acute (2) Gestational diabetes: Code(s): O24.419 - Gestational diabetes mellitus in , unspecified control Status: Acute (3) Encounter for induction of labor: Code(s): Z34.90 - Encounter for supervision of normal , unspecified, unspecified trimester Status: Acute OB - DS: Summary OB Procedures : NST OB Procedures Intrapartum: Spontaneous Vag Delivery OB Procedures: : None Time Spent with Patient Time attestation: Total time spent providing and/or coordinating discharge services: Exam Const: General: no acute distress Eyes: General: appearance normal, both eyes and all related structures Resp: Effort & Inspection: normal respiratory effort : External Female Exam: other (uterus firm below umbilicus) Other: Perineum normal Extrem: Other: no calf tenderness, no redness, 1+ edema bilat Psych: Appearance: grossly normal DS: Data Data Completed and Pending Completed studies during hospitalization: Pending at discharge 07/07/20 01:19 Surgical [PTH] Routine Discharge Plan Discharge Attending physician on discharge: Ji Ortega Discharging Clinician: Ji Orteag Anticipated Discharge Date/Time: 07/09/20 11:03 Patient Disposition: Home, Self-Care Activity: may shower and pelvic rest Diet: regular Discharge Instructions: Education: Mom and Baby Guide Given to: Mother Follow-Up: Call your delivering provider's office for an appointment to be seen in: 1 Week Mom and baby should come to the [facility] for the follow-up appointment. Appointment Date/Time: July 10, 2020 at 10:00 am What to expect at your follow-up visit: Blood Pressure Check Physical Assessment Call [phone] if you are unable to keep your appointment time. BREAST CARE: * Wear a snug supportive bra. * For engorgement discomfort: Breast Feeding: * Apply warm moist washcloths * Express milk as needed to relieve engorgement * Wear loose clothing * For sore nipples: * Identify correct latch-on * Apply warm moist washcloths before and after nursing * Air dry nipples after nursing * May apply Lansinoh cream to nipples EPISIOTOMY/PERINEAL CARE: * Until bleeding stops, use your addy bottle after urinating * Change your pad frequently throughout the day * You may take sitz baths several times a day (fill your bathtub with warm water and soak for 20 minutes.) Do NOT bathe in the water * No tub baths until seen by your physician - You may shower ACTIVITY: * Rest as much as possible. * Do not exercise or lift anything heavier than your baby (such as laundry or other children.) * Avoid stairs or driving as much as possible. * Do not put anything into the vagina. No douching, tampons, or sexual activity until seen by physician. NOTIFY PHYSICIAN IF YOU HAVE ANY QUESTIONS OR IF ANY OF THE FOLLOWING SYMPTOMS OCCUR: * If your perineum becomes red, swollen, or more painful than what you have experienced in the hospital. * If your vaginal bleeding becomes foul smelling. * If your vaginal bleeding becomes more heavy than a period or if your bleeding changes from pink to bright red. However, you may pass an occasional walnut-sized clot once or twice for the first week . * If you experience a sharp, shooting pain in you calves. * If you discover a hard, reddened area on your breast or if you experience flu-like symptoms. * Temperature of 100.4 or higher DIET: * Eat regular, well-balanced me
== END 2020-07-09 13:36 | disposition home or self-care (01) | DRG 806 ==
LOC: ANHLDR 07:24 → ANHOB2 07-07 04:42
PROVIDERS: Admitting Provider Obstetrics & Gynecology; Visit Provider Obstetrics & Gynecology
DX: O24.420 Gestational diabetes mellitus in childbirth, diet controlled (principal); O98.32 Other infections with a predominantly sexual mode of transmission complicating childbirth; Z37.0 Single live birth; Z3A.39 39 weeks gestation of pregnancy; Z23 Encounter for immunization; O13.4 Gestational [pregnancy-induced] hypertension without significant proteinuria, complicating childbirth; F41.1 Generalized anxiety disorder; O99.344 Other mental disorders complicating childbirth; O99.214 Obesity complicating childbirth; E66.01 Morbid (severe) obesity due to excess calories; F32.9 Major depressive disorder, single episode, unspecified; A56.8 Sexually transmitted chlamydial infection of other sites; O70.0 First degree perineal laceration during delivery; O66.0 Obstructed labor due to shoulder dystocia; O69.2XX0 Labor and delivery complicated by other cord entanglement, with compression, not applicable or unspecified; O36.8330 Maternal care for abnormalities of the fetal heart rate or rhythm, third trimester, not applicable or unspecified; O99.824 Streptococcus B carrier state complicating childbirth
CPT/HCPCS: 36415; 80307; 85014; 85018; 85025; 86592; 86703; 86850; 86900; 86901; 88307; 90471; 90686; A9270; G0008; G0432; J0290; J2370; J2405; J2590; J2795; J3010; J7030; J7120

== ENCOUNTER 2020-10-16 10:57 | Outpatient (CLI) | payer OTHER, SELFPAY ==
[2020-10-16 11:55] LABS: T4 Thyroxine 6.55 ug/dL (5.53-11.0)
[2020-10-16 12:09] LABS: Thyroid Stimulating Hormone < 0.015 uIU/mL (0.465-4.680)
== END 2020-10-16 10:58 | disposition home or self-care (01) ==
PROVIDERS: Visit Provider Obstetrics & Gynecology
DX: R63.5 Abnormal weight gain (principal)
CPT/HCPCS: 36415; 84436; 84443

== ENCOUNTER 2023-05-30 22:46 | Emergency (ER) | payer OTHER, SELFPAY ==
[2023-05-30 22:52] VITALS: BP 142/73; PULSE 82; RESP 20; TEMP 36.8; O2SAT 100
[2023-05-30 23:11] VITALS: BP 132/75; PULSE 82; O2SAT 99
--- NOTE | 2023-05-30 23:24 | PC.NURSE ---
Pt sts that she twisted her ankle and then fell. <6 feet. pt has mild swelling noted with +pulses noted. abc are wnl nad. pt denies pain
--- NOTE | 2023-05-31 00:31 | ED.GENADULT ---
HPI - General Adult General Chief complaint: Extremity Injury, Lower Stated complaint: right foot pain Time Seen by Provider: 05/31/23 00:04 History of Present Illness HPI narrative: 27F presented with right foot pain. Per patient, she was walking this evening when she rolled her right ankle. The ankle continued to hurt, so presented to the ED for further evaluation. Denied injury elsewhere or other medical complaints. Related Data Home Medications Medication Instructions Recorded Confirmed prenat.vits,kandace,def-vkzp-nrlib 1 tablet PO DAILY 07/29/20 08/28/20 Allergies Allergy/AdvReac Type Severity Reaction Status Date / Time No Known Allergies Allergy Mild Verified 09/24/20 11:48 Review of Systems Review of Systems: See HPI [facility] Past Medical History Medical History (Updated 05/31/23 @ 00:59 by Fidel Blevins MD) Chlamydia Depression Encounter for childcare instruction Supervision of other high risk pregnancies, second trimester Vaginal delivery Surgical History Surgical History [place] teeth removed Family History Family History Father Diabetes mellitus Social History Social History Smoking status: Never smoker Gender identity (if verbalized by the patient): Female Spiritual care concerns: No Exam Narrative: General: Alert, calm and cooperative, no acute distress, phonating, sitting comfortably during visit HEENT: Pupils equal round and reactive to light, extra ocular movements intact, no conjunctival injection, head atraumatic, neck supple without meningismus Extremities: Right extremity without gross deformities or swelling, PT and DP pulses palpable, no ecchymosis, tenderness to palpation to right lateral aspect of foot, no other tenderness, no tenderness along fibular aspect of lower extremity, full strength and range of motion to right lower extremity, remaining extremities withhin normal limits, No edema, palpable peripheral pulses, warm, well perfused, no tenderness to bilateral calves Neurological: Alert, moving all extremities symmetrically, ambulating without deficit Course Vital Signs Vital signs: Vital Signs Temperature 98.2 F 05/30/23 22:52 Pulse Rate 82 05/30/23 22:52 Respiratory Rate 20 05/30/23 22:52 Blood Pressure 142/73 H 05/30/23 22:52 Pulse Oximetry 100 05/30/23 22:52 Oxygen Delivery Room Air 05/30/23 22:52 Temperature 98.4 F 05/31/23 01:15 Pulse Rate 74 05/31/23 01:15 Respiratory Rate 18 05/31/23 01:15 Blood Pressure 120/73 05/31/23 01:15 Pulse Oximetry 99 05/31/23 01:15 Oxygen Delivery Room Air 05/30/23 22:52 Medical Decision Making MDM Narrative Medical decision making narrative: 27 year old female presented with right foot pain after rolling it. Physical exam benign, no significant swelling or deformation, full strength and range of motion, neurovascularly intact, remaining exam atraumatic, vitals stable. Xrays of right lower extremity without gross evidence of fractures or dislocations. History and exam suggestive of sprain. Patient counseled on RICE therapy. The patient tolerated oral intake, is alert and oriented, speaking with clear speech, ambulated with steady gait, and has remained hemodynamically stable throughout the ED visit. Findings on imaging communicated to patient and counseled to follow up with primary care provider. Has close follow up with primary care provider. Areas of diagnostic uncertainty discussed and strict return precautions shared with patient; encouraged to return to the emergency department if symptoms returned or worsened. The patient is safe to be discharged with follow up, provided she abide by the verbalized and written instructions, to which the patient has expressed understanding. Vital Signs Vital Signs: Vital Signs Tempera
[2023-05-31] MEDS: ACETAMINOPHEN 500 MG TABLET 1000 MG PO (01:12)
[2023-05-31 01:15] VITALS: BP 120/73; PULSE 74; RESP 18; TEMP 36.9; O2SAT 99
--- NOTE | 2023-05-31 01:15 | PC.NURSE ---
pt refused toradol for pain due to IM
== END 2023-05-31 01:17 | disposition home or self-care (01) ==
PROVIDERS: Emergency Provider Emergency Medicine
DX: S93.401A Sprain of unspecified ligament of right ankle, initial encounter (principal); F32.A Depression, unspecified; X50.0XXA Overexertion from strenuous movement or load, initial encounter
CPT/HCPCS: 73610; 73630; 99283; A9270

== ENCOUNTER 2023-06-06 11:54 | Emergency (ER) | payer OTHER, SELFPAY ==
--- NOTE | 2023-06-06 11:57 | ED.LOWEXIN ---
HPI - Extremity Injury (Lower) General Chief Complaint: Extremity Injury, Lower Stated Complaint: recheck rt foot injury Time Seen by Provider: 06/06/23 11:57 Source: patient and old records reviewed Mode of arrival: ambulatory Limitations: no limitations History of Present Illness HPI Narrative: Sonja is a 27-year-old female patient presenting to the clinic today with complaints of right foot pain-recheck of ankle/foot injury. She reports she went to the ER on the 31 of May as she rolled her ankle on the . States she was stepped in a right and inverted her ankle. X-rays of the ankle and foot were completed and were negative for any sign of fracture or malalignment at that time. She was discharged with diagnosis of an ankle inversion/sprain injury Related Data Home Medications Medication Instructions Recorded Confirmed levonorgestrel 17.5 mcg/24 hrs See Rx Instructions .Route .COMPLEX 06/06/23 06/06/23 (5yrs) 19.5mg intrauterine device (Kyleena) Allergies Allergy/AdvReac Type Severity Reaction Status Date / Time No Known Allergies Allergy Mild Verified 06/06/23 11:58 Review of Systems Review of Systems: Pertinent positives per HPI. Patient denies any fever, chills, rash, headache, visual changes, dizziness, cough, runny nose, sore throat, shortness of breath, chest pain, palpitations, nausea, vomiting, diarrhea, constipation, abdominal pain, or any urinary issues. [facility] Past Medical History Medical History (Updated 06/06/23 @ 12:18 by Hunter Weems APRN) Chlamydia Depression Encounter for childcare instruction Supervision of other high risk pregnancies, second trimester Vaginal delivery Surgical History Surgical History [place] teeth removed Family History Family History Father Diabetes mellitus Social History Social History Smoking status: Never smoker Gender identity (if verbalized by the patient): Female Spiritual care concerns: No Comments At the time of my signature, I reviewed and agree with the nursing past medical, surgical, social, and family history. There is no relevant family history pertinent to the patient complaint. Exam Narrative: General: Well-developed, well nourished, in no apparent distress Head: Normocephalic, atraumatic. Cardio: Regular rate and rhythm, s1 and s2 normal, no murmur appreciated. Resp: Clear to auscultation bilaterally, no rhonchi, rales, wheezing or rubs. Musculoskeletal: No deformity, or bruising noted to the dorsal foot, pain with flexion and extension to the 2nd 3rd toe on the right foot, reports numbness and tingling to the 2nd and 3rd toe, tenderness to the distal midfoot and 2nd 3rd toe, limited range of motion to 2nd 3rd toe however other toes are able to flex and extend appropriately, muscle strength strong and equal, peripheral pulse strong, no edema, no cyanosis, normal gait and station Course Course Emergency Course: Portions of this record may have been created with voice recognition software. Level of Care: Express Care Visit Vital Signs Vital signs: Vital signs reviewed MDM - Extremity Injury (Lower) MDM Narrative Medical decision making narrative: At the time of visit patient is resting comfortably on the exam table. Reviewed x-rays from the May 31 and there was no sign of fracture or malalignment. I suspect patient has a foot sprain-recommend follow-up with PCP if symptoms persist as you may need an MRI to rule out a tendon/ligament tear. Supportive measures were discussed with the patient she voiced understanding discharge instructions and agrees to treatment plan. Differential Diagnosis Differential diagnosis: Likely other (Foot sprain, foot fracture, tendinitis) Discharge Plan Discharge Clinical Impression: A
[2023-06-06 12:06] VITALS: BP 137/78; PULSE 82; RESP 16; TEMP 36.7; O2SAT 100
== END 2023-06-06 12:19 | disposition home or self-care (01) ==
PROVIDERS: Emergency Provider Nurse Practitioner Family
DX: S93.601D Unspecified sprain of right foot, subsequent encounter (principal); X50.9XXD Other and unspecified overexertion or strenuous movements or postures, subsequent encounter
CPT/HCPCS: 99212; G0463

== ENCOUNTER 2023-08-13 15:58 | Emergency (ER) | payer OTHER, SELFPAY ==
[2023-08-13 16:05] VITALS: BP 137/70; PULSE 57; RESP 16; TEMP 36.7; O2SAT 100
--- NOTE | 2023-08-13 16:24 | ED.SKABFB ---
HPI - Skin/Abscess/Foreign Bdy General Chief complaint: Skin/Abscess/Foreign Body Stated complaint: Rash Time Seen by Provider: 08/13/23 16:24 Source: patient Mode of arrival: ambulatory Limitations: no limitations History of Present Illness HPI narrative: 19-year-old female presented for complaint of itchy red rash noted over her body surface. She states the rash started 2 days ago and is concerned it is poison oak. She states the rash started after moving a treatment of fallen at her driveway. Denies lip, tongue, or throat swelling, shortness of breath or wheezing. Denies changes to soap, detergent, lotion, or any other exposures. No one else in the house or any contacts with similar symptoms. She has been using calamine lotion and taking Benadryl. Related Data Home Medications Medication Instructions Recorded Confirmed levonorgestrel 17.5 mcg/24 hrs See Rx Instructions .Route .COMPLEX 06/06/23 08/13/23 (5yrs) 19.5mg intrauterine device (Kyleena) Allergies Allergy/AdvReac Type Severity Reaction Status Date / Time No Known Allergies Allergy Mild Verified 08/13/23 16:21 Review of Systems Review of Systems: CONSTITUTIONAL: Denies body aches, fever, chills, or sweats. EYES: Denies visual changes, redness, or discharge. ENT: Denies rhinorrhea, congestion CARDIOVASCULAR: Denies chest pain, palpitations, or edema. RESPIRATORY: Denies cough or dyspnea. GASTROINTESTINAL: Denies abdominal pain, nausea, vomiting, or diarrhea. SKIN: Reports itchy rash MUSCULOSKELETAL: Denies back pain, joint pain, or myalgia. NEUROLOGIC: Denies headache, numbness, tingling, or weakness. ON LICENSE OF [facility] Past Medical History Medical History (Updated 08/13/23 @ 16:40 by Leena Greer APRN) Chlamydia Depression Encounter for childcare instruction Supervision of other high risk pregnancies, second trimester Vaginal delivery Surgical History Surgical History [place] teeth removed Family History Family History Father Diabetes mellitus Social History Social History Smoking status: Never smoker Gender identity (if verbalized by the patient): Female Spiritual care concerns: No Comments At time of signature, I have reviewed and agree with nursing past medical, surgical, social and family history unless otherwise noted. Please see nursing chart for further information. There is no relevant family history pertinent to the presenting complaint Exam Narrative: GENERAL: Well-appearing HEAD: Normocephalic, atraumatic. EYES: conjunctivae clear, and EOMI. ENT: Mucous membranes moist. Oropharynx without edema, erythema or lesions. NECK: Supple. No lymphadenopathy CHEST: Clear to auscultation. HEART: Regular rate and rhythm. SKIN: Warm, dry. Erythematous papular rash noted to face and neck, chest and abdomen, and bilateral upper extremities. Some clusters noted. Also with larger confluent areas of erythema to bilateral forearms extending to biceps, and bilateral groin. Rash noted to face however the calamine obstructs the rash. NEURO: Alert and oriented x3. Course Course Emergency Course: Patient is aware of diagnosis, understands and agrees to treatment plan. Anticipatory guidance given. Patient agrees to follow-up as directed and is aware of reasons to seek care at the emergency department. Portions of this record may have been created with voice recognition software Level of Care: Express Care Visit Vital Signs Vital signs: Vital Signs Temperature 98.0 F 08/13/23 16:05 Pulse Rate 57 L 08/13/23 16:05 Respiratory Rate 16 08/13/23 16:05 Blood Pressure 137/70 08/13/23 16:05 Pulse Oximetry 100 08/13/23 16:05 Oxygen Delivery Room Air 08/13/23 16:05 Temperature 98.0 F 08/13/23 16:05 Pulse Rate 57 L 08/13/23 16:05
== END 2023-08-13 16:44 | disposition home or self-care (01) ==
PROVIDERS: Emergency Provider Nurse Practitioner Family
DX: L25.9 Unspecified contact dermatitis, unspecified cause (principal)
CPT/HCPCS: 99213; G0463